=== PATIENT | male | born 1965 | race Caucasian/White ===

== ENCOUNTER 2021-03-22 08:45 | Day surgery (SDC) | payer OTHER ==
[2021-03-21 11:28] LABS: COVID AG,FIA SOURCE NASOPHARYNGEAL
[~2021-03-22] VITALS: Ht 170.2 cm; Wt 94.5 kg
[~2021-03-22 08:45] MED LIST: AMLO2.5T96 PO; HYDR25TA2 PO; LOSA50TA37 PO; SODIUM CHLORIDE 0.9% 1,000 ML IV ONE; SODIUM CHLORIDE 0.9% 1,000 ML ONE
[2021-03-22 10:58] LABS: ANION GAP 10 mmol/L (8-16); CALCIUM, TOTAL 9.2 mg/dL (8.8-10.5); CARBON DIOXIDE 27 mmol/L (22-29); CHLORIDE 102 mmol/L (98-107); CREATININE 1.21 mg/dL (0.60-1.30); GLOMERULAR FILTR. RATE CALC > 60 mL/min (>60); GLUCOSE,RANDOM 92 mg/dL (70-110); POTASSIUM 3.8 mmol/L (3.5-5.1); SODIUM SERUM 139 mmol/L (136-145); UREA NITROGEN, BLOOD 21 mg/dL (7-18)
[2021-03-22 11:03] LABS: ALANINE AMINOTRANSFERASE 42 U/L (12-78); ALBUMIN 4.1 g/dL (3.4-5.0); ALKALINE PHOSPHATASE 68 U/L (46-116); ASPARTATE AMINOTRANSFERASE 22 U/L (15-37); BILIRUBIN,TOTAL 0.6 mg/dL (0.1-1.0); TOTAL PROTEIN, SERUM 7.8 g/dL (6.4-8.2)
[2021-03-22] MEDS ORDERED: SODIUM CHLORIDE 0.9% 100 ML ONE (11:10)
[2021-03-22] MEDS ORDERED: IOVERSOL 350 MG/ML 150 ML VIAL ONE (11:10)
[2021-03-22 11:14] LABS: EOSINOPHILS % (AUTO) 2.8 % (1.0-6.0); HEMATOCRIT 43.7 % (41-53); HEMOGLOBIN 14.2 g/dL (13.5-17.5); LYMPHOCYTES # (AUTO) 2.2 K/uL (1.0-4.8); LYMPHOCYTES % (AUTO) 35.6 % (22.0-44.0); MEAN CORPUSCULAR HEMOGLOBIN 27.7 pg (26.0-34.0); MEAN CORPUSCULAR HGB CONC 32.4 G/dL (31.0-37.0); MEAN CORPUSCULAR VOLUME 86 fL (80-100); MONOCYTES # (AUTO) 0.7 K/uL (0.1-1.0); MONOCYTES % (AUTO) 11.6 % (2.0-9.0); PLATELET COUNT (AUTO) 208 K/uL (150-450); RED BLOOD CELL COUNT(AUTO) 5.11 MIL/uL (4.50-5.90); RED CELL DISTRIBUTION WIDTH 14.1 % (11.5-14.5)
[2021-03-22 11:27] LABS: PROTHROMBIN TIME 10.3 SEC (9.4-11.6)
== END 2021-03-22 11:55 | disposition home or self-care (01) ==
LOC: SURGERY 08:45 → EDBD 08:45 → EDSTATUS 10:30 → SURGERY 11:55
PROVIDERS: ATTEND Specialist
DX: I10 Essential (primary) hypertension (principal); Q27.2 Other congenital malformations of renal artery; Z20.822 Contact with and (suspected) exposure to COVID-19; M19.90 Unspecified osteoarthritis, unspecified site; E78.00 Pure hypercholesterolemia, unspecified; Z79.899 Other long term (current) drug therapy; Z98.890 Other specified postprocedural states; Z79.01 Long term (current) use of anticoagulants
CPT/HCPCS: 36415; 74177; 80053; 85025; 85610; 85730; 87426; C9803; J7030; J7050; Q9967

== ENCOUNTER 2023-11-20 15:38 | Emergency (ER) | payer MEDICAID, OTHER ==
[~2023-11-20] VITALS: Ht 172.7 cm; Wt 84.1 kg
[~2023-11-20 15:38] MED LIST changes: +LOSA-382 PO; -LOSA50TA37 PO; -SODIUM CHLORIDE 0.9% 1,000 ML IV ONE; -SODIUM CHLORIDE 0.9% 1,000 ML ONE
[2023-11-20 15:50] VITALS: TEMP 98.4
[2023-11-20] MEDS ORDERED: DAPA10TA PO (15:50)
[2023-11-20] MEDS ORDERED: TAMS0.4C94 PO (15:50)
[2023-11-20] MEDS ORDERED: PredniSONE 20 MG TABLET PO ONE (17:15)
[2023-11-20] MEDS ORDERED: DiphenhydrAMINE HCL 25 MG CAPSULE PO ONE (17:15)
[2023-11-20 17:29] VITALS: BP 143/88; PULSE 98; RESP 16
[2023-11-20] MEDS ORDERED: PRED-554 PO (17:33)
[2023-11-20] MEDS ORDERED: TRI115O TP (17:33)
== END 2023-11-20 18:11 | disposition home or self-care (01) ==
LOC: EMS 15:47
DX: L23.9 Allergic contact dermatitis, unspecified cause (principal); I10 Essential (primary) hypertension; Z79.899 Other long term (current) drug therapy
CPT/HCPCS: 99283; J7512